=== PATIENT | female | born 1945 | race Caucasian/White ===

== ENCOUNTER 2019-09-01 11:48 | Outpatient (CLI) | payer OTHER, BC | END 2019-09-01 11:58 | disposition home or self-care (01) | LOC: NUCLEAR 11:48 | PROVIDERS: ATTEND Orthopaedic Surgery | DX: M81.0 Age-related osteoporosis without current pathological fracture (principal) ==

== ENCOUNTER → 2019-10-03 10:06 | Outpatient (CLI) | payer OTHER, BC | END | disposition home or self-care (01) | LOC: LAB 10:06 | PROVIDERS: ATTEND Orthopaedic Surgery | DX: M85.88 Other specified disorders of bone density and structure, other site (principal); E55.9 Vitamin D deficiency, unspecified; E21.2 Other hyperparathyroidism; M81.8 Other osteoporosis without current pathological fracture; E88.89 Other specified metabolic disorders; E56.1 Deficiency of vitamin K ==

== ENCOUNTER 2023-07-22 19:53 | Emergency (ER) | payer OTHER, BC ==
[~2023-07-22] VITALS: Ht 160 cm; Wt 79.4 kg
[2023-07-22] MEDS ORDERED: ELIQUIS2.5 MG PO (20:37)
[2023-07-22] MEDS ORDERED: NEXIUM2.5 MG PO (20:37)
[2023-07-22] MEDS ORDERED: KETOROLAC TROMETHAMINE 30 MG VIAL IV STA (21:48)
[2023-07-22] MEDS ORDERED: CIPROFLOXACIN IN 5 % DEXTROSE 400 MG/200 ML PIGGYBAG IV STA (21:49)
[2023-07-22 22:29] LABS: HEMATOCRIT 38.9 % (36.0-45.00); HEMOGLOBIN 13.2 g/dL (12.0-15.00); MEAN CELL VOLUME 86.5 fL (80.00-100.00); MEAN CORPUSCULAR HEMOGLOBIN 29.4 pg (27.00-32.0); PLATELET COUNT 227 K/uL (150-450); RED CELL DISTRIBUTION WIDTH 14.1 % (11.5-14.5)
[2023-07-22 23:02] LABS: PH,URINE 5.5 (5.0-8.0); URINE APPEARANCE Turbid; URINE BILIRRUBIN Negative (NEGATIVE); URINE BLOOD Large; URINE COLOR Yellow; URINE GLUCOSE Negative (NEGATIVE); URINE LEUKOCYTE Large; URINE NITRATE Positive; URINE PROTEIN 30 (NEGATIVE); URINE UROBILINOGEN 0.2 E.U./dl
[2023-07-22 23:05] LABS: URINE EPITHELIAL CELLS 8.3 uL (0.0-38.8); URINE RBC 64.2 uL (0.0-20.8)
[2023-07-22 23:28] LABS: URINE BACTERIA > 9821.5 uL (0.0-1933); URINE WBC > 5548.3 uL (0.0-23.2)
== END 2023-07-22 23:52 | disposition home or self-care (01) ==
LOC: ER 19:53
DX: N39.0 Urinary tract infection, site not specified (principal); R30.0 Dysuria
CPT/HCPCS: 36415; 96365; 99283; J0744; J1885

== ENCOUNTER 2023-08-01 14:02 | Emergency (ER) | payer OTHER, BC ==
[~2023-08-01] VITALS: Ht 160 cm; Wt 79.4 kg
[~2023-08-01 14:02] MED LIST: ELIQUIS2.5 MG PO; NEXIUM2.5 MG PO
[2023-08-01] MEDS ORDERED: ELIQUIS5 MG PO (14:20)
[2023-08-01 17:47] LABS: URINE APPEARANCE Clear; URINE BILIRRUBIN Negative (NEGATIVE); URINE BLOOD Negative; URINE COLOR Yellow; URINE GLUCOSE Negative (NEGATIVE); URINE LEUKOCYTE Negative; URINE NITRATE Negative; URINE PROTEIN Negative (NEGATIVE); URINE UROBILINOGEN 0.2 E.U./dl
[2023-08-01 17:57] LABS: URINE BACTERIA 16.3 uL (0.0-1933); URINE EPITHELIAL CELLS 6.6 uL (0.0-38.8); URINE WBC 5.5 uL (0.0-23.2)
== END 2023-08-01 18:33 | disposition home or self-care (01) ==
LOC: ER 14:03
DX: R30.0 Dysuria (principal)